=== PATIENT | female | born 1990 ===

== ENCOUNTER → 2022-09-29 09:54 | Outpatient (BNVA) | payer OTHER, SELFPAY | PROVIDERS: Visit Provider Physician Assistant | DX: Z13.89 Encounter for screening for other disorder (principal) ==

== ENCOUNTER 2022-12-16 14:54 | Outpatient (AMB) | payer OTHER, SELFPAY ==
[2022-12-16 14:57] VITALS: BP 150/82; PULSE 88; TEMP 36.1; O2SAT 98; BMI 44.7
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
== END 2022-12-16 15:30 ==
PROVIDERS: Visit Provider Physician Assistant Surgical
DX: E66.01 Morbid (severe) obesity due to excess calories (principal); Z68.41 Body mass index [BMI] 40.0-44.9, adult
CPT/HCPCS: 99205

== ENCOUNTER → 2022-12-16 14:54 | Outpatient (BNVA) | payer OTHER, SELFPAY | PROVIDERS: Visit Provider Physician Assistant Surgical ==